=== PATIENT | female | born 1965 | race Caucasian/White ===

== ENCOUNTER → 2019-12-27 13:09 | Outpatient (REF) | payer OTHER, SELFPAY | LOC: ANHLAB 13:09 | PROVIDERS: PCP Family Medicine; Visit Provider Nurse Practitioner Family | DX: L72.9 Follicular cyst of the skin and subcutaneous tissue, unspecified (principal) | CPT/HCPCS: 88304 ==

== ENCOUNTER 2021-06-23 09:57 | Outpatient (CLI) | payer OTHER, SELFPAY ==
--- NOTE | ~2021-06-23 | US_ITS ---
EXAMINATION: US abdomen limited DATE: 06/23/2021 10:34 INDICATION: Other specified abnormal findings of blood chemistry. TECHNIQUE: Multiple grayscale and Doppler ultrasound images of the abdomen were obtained. COMPARISON: Ultrasound 04/16/2015 FINDINGS: The visualized portions of the head, body, and tail of the pancreas are normal. There is di ffuse hepatic steatosis. There is normal flow in main portal vein. The gallbladder is normal in size. No gallstones or gallbladder wall thickening. There was no sonographic Lewis sign. The common duct is normal and measures 3 mm. IMPRESSION: 1. Diffuse hepatic steatosis. Reviewed, dictated and finalized at location A.
== END 2021-06-23 09:58 | disposition home or self-care (01) ==
LOC: ANHIMG 10:00
PROVIDERS: PCP Family Medicine; Visit Provider Physician Assistant
DX: R79.89 Other specified abnormal findings of blood chemistry (principal); K76.0 Fatty (change of) liver, not elsewhere classified
CPT/HCPCS: 76705

== ENCOUNTER 2021-08-13 01:25 | Day surgery (SDC) | payer OTHER, SELFPAY ==
[2021-08-04 13:14] VITALS: BMI 32.8
--- NOTE | 2021-08-12 13:06 | PM.HPGS ---
History of Present Illness History of Present Illness Consent: Risks, benefits, and alternatives have been discussed and questions answered. Patient agrees to proceed with procedure. Chief complaint: hx of colon polyps Z86.010 Narrative: Nery Barker is a 56 year old female Family history of colon cancer. She had a polyp removed about 7 years ago. She is here for colon cancer screening Review of Systems Review of Systems: All systems reviewed & are unremarkable except as noted in HPI and below PMFSH Past Medical History Medical History Anxiety HLD (hyperlipidemia) HTN (hypertension) Type 2 diabetes mellitus Surgical History Surgical History History of hysterectomy Family History Family History Sibling Hypertension Carcinoma of colon Family history of coronary artery disease Mother Family history of coronary artery disease Social History Social History Smoking status: Never smoker Alcohol intake: current Drinks per week: 5 Substance use: never Substance use type: does not use Gender identity (if verbalized by the patient): Female Meds Home Medications and Allergies Home Medications Medication Instructions Recorded Confirmed Type blood sugar diagnostic #100 ea 01/20/21 08/13/21 Rx blood-glucose meter #1 ea 01/20/21 08/13/21 Rx lancets #200 ea 01/20/21 08/13/21 Rx atorvastatin 10 mg tablet See Rx Instructions .ROUTE 01/28/21 08/13/21 Rx .COMPLEX #90 tablet amlodipine 10 mg tablet 10 mg PO DAILY #90 tablet 03/10/21 08/13/21 Rx hydrochlorothiazide 25 mg tablet 25 mg PO DAILY #30 tablet 03/17/21 08/13/21 Rx folic acid 1 mg tablet 1 mg PO DAILY #90 tablet 05/12/21 08/13/21 Rx gabapentin 300 mg capsule 300 mg PO QHS #30 cap 06/23/21 08/13/21 Rx losartan 100 mg tablet 100 mg PO DAILY #30 tablet 06/24/21 08/13/21 Rx semaglutide 0.5 mg SUBCUT WEEKLY #1.5 ml 07/16/21 08/13/21 Rx lorazepam 0.5 mg tablet 0.5 mg PO TID PRN #30 tablet 07/17/21 08/13/21 Rx metoprolol succinate 100 mg See Rx Instructions .ROUTE 07/17/21 08/13/21 Rx tablet,extended release 24 hr .COMPLEX #90 tablet metformin 500 mg PO DAILY 08/04/21 08/13/21 History Allergies Allergy/AdvReac Type Severity Reaction Status Date / Time No Known Allergies Allergy Verified 08/13/21 06:22 Exam Resp: Auscultation: clear to auscultation bilaterally Cardio: Rate: regular rate Rhythm: regular rhythm GI: GI Palp: Yes Soft to palpation and No Tenderness to palpation present (GI) Assessment and Plan Assessment and plan (1) Colon cancer screening: Code(s): Z12.11 - Encounter for screening for malignant neoplasm of colon Status: Acute Assessment and Plan: Colonoscopy with possible biopsy or polypectomy or cautery or injection of substances.
[2021-08-13 06:23] VITALS: BP 127/78; PULSE 105; RESP 18; TEMP 36.7; O2SAT 100
[2021-08-13] MEDS: LACTATED RINGERS 1,000 ML 150 ML IV CONT (06:35)
[2021-08-13 06:42] LABS: Glucose Point of Care 125 mg/dl (65-105)
--- NOTE | 2021-08-13 07:08 | WPDANESEPPF ---
Anes - Initial Pre Proc Eval Procedure: Operation Date: 08/13/21 07:30 Proposed Procedures p Screening Colonoscopy - Abhay Whatley MD Date/Time: 08/13/21 07:08 Surgeon: Abhay Whatley MD Pre Op Diagnosis: hx of colon polyps Z86.010 Patient Data Age: 56 Gender: F Height: 1.7 m Weight: 93.9 kg Last Vital Signs Temp 98.1 F 08/13/21 06:23 Pulse 105 H 08/13/21 06:23 Resp 18 08/13/21 06:23 BP 127/78 08/13/21 06:23 Pulse Ox 100 08/13/21 06:23 Allergies Allergy/AdvReac Type Severity Reaction Status Date / Time No Known Allergies Allergy Verified 08/13/21 06:22 Home Medications Medication Instructions Recorded Confirmed Type blood sugar diagnostic #100 ea 01/20/21 08/13/21 Rx blood-glucose meter #1 ea 01/20/21 08/13/21 Rx lancets #200 ea 01/20/21 08/13/21 Rx atorvastatin 10 mg tablet See Rx Instructions .ROUTE 01/28/21 08/13/21 Rx .COMPLEX #90 tablet amlodipine 10 mg tablet 10 mg PO DAILY #90 tablet 03/10/21 08/13/21 Rx hydrochlorothiazide 25 mg tablet 25 mg PO DAILY #30 tablet 03/17/21 08/13/21 Rx folic acid 1 mg tablet 1 mg PO DAILY #90 tablet 05/12/21 08/13/21 Rx gabapentin 300 mg capsule 300 mg PO QHS #30 cap 06/23/21 08/13/21 Rx losartan 100 mg tablet 100 mg PO DAILY #30 tablet 06/24/21 08/13/21 Rx semaglutide 0.5 mg SUBCUT WEEKLY #1.5 ml 07/16/21 08/13/21 Rx lorazepam 0.5 mg tablet 0.5 mg PO TID PRN #30 tablet 07/17/21 08/13/21 Rx metoprolol succinate 100 mg See Rx Instructions .ROUTE 07/17/21 08/13/21 Rx tablet,extended release 24 hr .COMPLEX #90 tablet metformin 500 mg PO DAILY 08/04/21 08/13/21 History Laboratory Tests 08/13/21 06:38 POC Capillary Glucose 125 mg/dl H mg/dl (65-105) Patient hx anesthesia problems: none Family hx anesthesia problems: none Results Review: All pre-operative results and documents have been reviewed as part of the pre-operative evaluation. [facility] Past Medical History Medical History (Updated 08/13/21 @ 07:09 by Pavan Worrell MD) Anxiety HLD (hyperlipidemia) HTN (hypertension) Type 2 diabetes mellitus Surgical History Surgical History History of hysterectomy Family History Family History Sibling Hypertension Carcinoma of colon Family history of coronary artery disease Mother Family history of coronary artery disease Social History Social History Smoking status: Never smoker Alcohol intake: current Drinks per week: 5 Substance use: never Substance use type: does not use Gender identity (if verbalized by the patient): Female Anes - Eval Final PreProcedure Day of Procedure 08/13/21 07:08 Patient weight: obese Heart: regular rate and rhythm Lungs: clear to auscultation Airway: Mallampati scale class II Neurological: alert and oriented Last oral intake: >/= 8 hours ASA classification: III Emergent: no Anesthetic plan: proceed Anesthesia type and monitoring: general GIVS and standard monitoring Results Review: All pre-operative results and documents have been reviewed as part of the pre-operative evaluation. Informed Consent: The patient's anesthetic plan and its attendant risks and benefits were discussed with the patient/family/POA. Questions were solicited and answers provided to the satisfaction of the patient/family/POA.
[2021-08-13 07:58] VITALS: BP 108/72; PULSE 105; RESP 17; O2SAT 98
[2021-08-13 08:08] VITALS: BP 126/86; PULSE 99; RESP 24; O2SAT 99
[2021-08-13 08:18] VITALS: BP 133/82; PULSE 81; RESP 15; O2SAT 100
== END 2021-08-13 08:24 | disposition home or self-care (01) ==
PROVIDERS: PCP Family Medicine; Visit Provider Internal Medicine Gastroenterology
PROC: 0DJD8ZZ Inspection of Lower Intestinal Tract, Via Natural or Artificial Opening Endoscopic (ICD-10-PCS; CPT 45378; principal; 2021-08-13 07:30)
DX: Z12.11 Encounter for screening for malignant neoplasm of colon (principal); K57.30 Diverticulosis of large intestine without perforation or abscess without bleeding; D12.2 Benign neoplasm of ascending colon; Z80.0 Family history of malignant neoplasm of digestive organs; I10 Essential (primary) hypertension; E78.5 Hyperlipidemia, unspecified; E11.9 Type 2 diabetes mellitus without complications; F41.9 Anxiety disorder, unspecified; Z79.84 Long term (current) use of oral hypoglycemic drugs; E66.9 Obesity, unspecified; Z68.32 Body mass index [BMI] 32.0-32.9, adult
CPT/HCPCS: 45385; 45381; 82948; 88305; J2704; J7120

== ENCOUNTER → 2021-09-25 15:36 | Outpatient (REF) | payer OTHER, SELFPAY | LOC: ANHLAB 15:36 | PROVIDERS: PCP Family Medicine; Visit Provider Nurse Practitioner | DX: L72.0 Epidermal cyst (principal) | CPT/HCPCS: 88304 ==

== ENCOUNTER 2022-09-09 00:47 | Day surgery (SDC) | payer OTHER, SELFPAY ==
[2022-08-21 13:37] VITALS: BMI 32.8
--- NOTE | 2022-09-08 12:45 | PM.HPGS ---
History of Present Illness History of Present Illness Consent: Risks, benefits, and alternatives have been discussed and questions answered. Patient agrees to proceed with procedure. Chief complaint: hx colon polyps, neoplasm screening Narrative: Nery Barker is a 57 year old female returns for colonoscopy because 1 year ago she had piecemeal removal of of large broad-based villous adenoma from the ascending colon. Review of Systems Review of Systems: All systems reviewed & are unremarkable except as noted in HPI and below PMFSH Past Medical History Medical History Anxiety HLD (hyperlipidemia) HTN (hypertension) Type 2 diabetes mellitus Surgical History Surgical History History of hysterectomy Family History Family History Sibling Hypertension Carcinoma of colon Family history of coronary artery disease Mother Family history of coronary artery disease Social History Social History Smoking status: Never smoker Alcohol intake: current Drinks per week: 6 Substance use: former Substance use type: marijuana Last use: 30 YRS Living arrangements: alone Gender identity (if verbalized by the patient): Female Sexual Orientation (if Verbalized by the Patient): Straight or Heterosexual Spiritual care concerns: No Meds Home Medications and Allergies Home Medications Medication Instructions Recorded Confirmed Type blood sugar diagnostic (Blood #100 ea 01/20/21 05/28/22 Rx Glucose Test strips) blood-glucose meter #1 ea 01/20/21 05/28/22 Rx lancets #200 ea 01/20/21 05/28/22 Rx hydrochlorothiazide 25 mg tablet 25 mg PO DAILY #90 tabs 12/24/21 09/09/22 Rx gabapentin 300 mg capsule 300 mg PO BID #180 caps 06/09/22 09/09/22 Rx atorvastatin 10 mg tablet See Rx Instructions .Route 07/13/22 09/09/22 Rx .COMPLEX #90 tabs losartan 100 mg tablet 100 mg PO DAILY #90 tabs 07/13/22 09/09/22 Rx semaglutide 0.25 mg or 0.5 mg (2 0.5 mg (0.4 mL) subcut WEEKLY 4 07/27/22 09/09/22 Rx mg/1.5 mL) subcutaneous pen doses #1.5 mL injector (Ozempic) lorazepam 0.5 mg tablet (Ativan) 0.5 mg PO TID PRN anxiety #30 tabs 08/20/22 09/09/22 Rx folic acid 1 mg tablet 1 mg PO DAILY #90 tabs 09/04/22 09/09/22 Rx Allergies Allergy/AdvReac Type Severity Reaction Status Date / Time No Known Allergies Allergy Verified 09/09/22 06:40 Exam Const: General: alert Orientation/consciousness: patient oriented x3 Resp: Auscultation: clear to auscultation bilaterally Cardio: Rhythm: regular rhythm GI: GI Palp: Yes Soft to palpation and No Tenderness to palpation present (GI) Neuro: General: patient oriented x3 Assessment and Plan Assessment and plan (1) Colon cancer screening: Code(s): Z12.11 - Encounter for screening for malignant neoplasm of colon Status: Acute Assessment and Plan: Colonoscopy with possible biopsy or polypectomy or cautery or injection of substances.
[2022-09-09 06:40] LABS: Glucose Point of Care 132 mg/dl (65-105)
[2022-09-09 06:41] VITALS: BP 136/94; PULSE 84; RESP 18; TEMP 36.2; O2SAT 99
[2022-09-09] MEDS: LACTATED RINGERS 1,000 ML 150 ML IV CONT (06:45)
--- NOTE | 2022-09-09 07:28 | WPDANESEPPF ---
Anes - Initial Pre Proc Eval Procedure: Operation Date: 09/09/22 08:00 Proposed Procedures p Screening Colonoscopy - Abhay Whatley MD Date/Time: 09/09/22 07:28 Surgeon: Abhay Whatley MD Pre Op Diagnosis: hx colon polyps, neoplasm screening Patient Data Age: 57 Gender: F Height: 1.7 m Weight: 97.2 kg Last Vital Signs Temp 97.2 F L 09/09/22 06:41 Pulse 84 09/09/22 06:41 Resp 18 09/09/22 06:41 BP 136/94 H 09/09/22 06:41 Pulse Ox 99 09/09/22 06:41 O2 Del Method Room Air 09/09/22 06:41 Allergies Allergy/AdvReac Type Severity Reaction Status Date / Time No Known Allergies Allergy Verified 09/09/22 06:40 Home Medications Medication Instructions Recorded Confirmed Type blood sugar diagnostic (Blood #100 ea 01/20/21 05/28/22 Rx Glucose Test strips) blood-glucose meter #1 ea 01/20/21 05/28/22 Rx lancets #200 ea 01/20/21 05/28/22 Rx hydrochlorothiazide 25 mg tablet 25 mg PO DAILY #90 tabs 12/24/21 09/09/22 Rx gabapentin 300 mg capsule 300 mg PO BID #180 caps 06/09/22 09/09/22 Rx atorvastatin 10 mg tablet See Rx Instructions .Route 07/13/22 09/09/22 Rx .COMPLEX #90 tabs losartan 100 mg tablet 100 mg PO DAILY #90 tabs 07/13/22 09/09/22 Rx semaglutide 0.25 mg or 0.5 mg (2 0.5 mg (0.4 mL) subcut WEEKLY 4 07/27/22 09/09/22 Rx mg/1.5 mL) subcutaneous pen doses #1.5 mL injector (Ozempic) lorazepam 0.5 mg tablet (Ativan) 0.5 mg PO TID PRN anxiety #30 tabs 08/20/22 09/09/22 Rx folic acid 1 mg tablet 1 mg PO DAILY #90 tabs 09/04/22 09/09/22 Rx Laboratory Tests 09/09/22 06:38 POC Capillary Glucose 132 mg/dl H mg/dl (65-105) Patient hx anesthesia problems: none Family hx anesthesia problems: none Results Review: All pre-operative results and documents have been reviewed as part of the pre-operative evaluation. [facility] Past Medical History Medical History Anxiety HLD (hyperlipidemia) HTN (hypertension) Type 2 diabetes mellitus Surgical History Surgical History History of hysterectomy Family History Family History Sibling Hypertension Carcinoma of colon Family history of coronary artery disease Mother Family history of coronary artery disease Social History Social History Smoking status: Never smoker Alcohol intake: current Drinks per week: 6 Substance use: former Substance use type: marijuana Last use: 30 YRS Living arrangements: alone Gender identity (if verbalized by the patient): Female Sexual Orientation (if Verbalized by the Patient): Straight or Heterosexual Spiritual care concerns: No Anes - Eval Final PreProcedure Day of Procedure 09/09/22 07:28 Patient weight: obese Heart: regular rate and rhythm Lungs: clear to auscultation Airway: Mallampati scale class II Neurological: alert and oriented Last oral intake: >/= 8 hours ASA classification: III Emergent: no Anesthetic plan: proceed Anesthesia type and monitoring: general GIVS and standard monitoring Results Review: All pre-operative results and documents have been reviewed as part of the pre-operative evaluation. Informed Consent: The patient's anesthetic plan and its attendant risks and benefits were discussed with the patient/family/POA. Questions were solicited and answers provided to the satisfaction of the patient/family/POA.
[2022-09-09] MEDS: SIMETHICONE ORAL SUSPENSION 20 MG/0.3 ML 30 ML BOTTLE 0.6 ML IRRIGATION (08:04)
[2022-09-09 08:13] VITALS: BP 99/65; PULSE 88; RESP 20; O2SAT 99
[2022-09-09 08:23] VITALS: BP 116/75; PULSE 84; RESP 20; O2SAT 100
[2022-09-09 08:33] VITALS: BP 119/80; PULSE 72; RESP 15; O2SAT 99
== END 2022-09-09 08:45 | disposition home or self-care (01) ==
PROVIDERS: PCP Family Medicine; Visit Provider Internal Medicine Gastroenterology
PROC: 0DJD8ZZ Inspection of Lower Intestinal Tract, Via Natural or Artificial Opening Endoscopic (ICD-10-PCS; CPT 45378; principal; 2022-09-09 08:00)
DX: Z09 Encounter for follow-up examination after completed treatment for conditions other than malignant neoplasm (principal); K57.30 Diverticulosis of large intestine without perforation or abscess without bleeding; K63.5 Polyp of colon; I10 Essential (primary) hypertension; E78.5 Hyperlipidemia, unspecified; E11.9 Type 2 diabetes mellitus without complications; F41.9 Anxiety disorder, unspecified; Z79.899 Other long term (current) drug therapy; E66.9 Obesity, unspecified; Z68.33 Body mass index [BMI] 33.0-33.9, adult
CPT/HCPCS: 45380; 82948; 88305; J2704; J7120

== ENCOUNTER 2023-04-15 08:53 | Outpatient (CLI) | payer OTHER, SELFPAY ==
--- NOTE | 2023-04-15 11:00 | NEURO_ITS ---
Impression: # Known diabetic complains of increasing numbness of all extremities. History of significant arthritis. # Length dependent neuropathy involving lower extremities more than uppers and motor nerves more than sensory nerves . None to minimal responses obtained from the right lower extremity. # Mild right ulnar neuropathy across the elbow superimposed on the underlying neuropathic process. # Needle/EMG exam revealed neurogenic changes but no fibrillations In the lower extremities muscles. Nerve Conduction Studies Anti Sensory Summary Table Stim Site NR Peak (ms) P-T Amp (?V) Site1 Site2 Delta-P (ms) Dist (cm) Olaf (m/s) Left Median Anti Sensory (2-3nd Digit) Wrist 2.9 15.2 Wrist 2-3nd Digit 2.9 14.0 48 Wrist 2.9 13.7 Wrist 2-3nd Digit 2.9 14.0 48 Right Median Anti Sensory (2-3nd Digit) Wrist 3.3 11.2 Wrist 2-3nd Digit 3.3 14.0 42 Wrist 3.1 8.5 Wrist 2-3nd Digit 3.3 14.0 42 Left Radial Anti Sensory (Base 1st Digit) Wrist 2.0 13.2 Wrist Base 1st Digit 2.0 0.0 Right Radial Anti Sensory (Base 1st Digit) Wrist 2.3 34.6 Wrist Base 1st Digit 2.3 0.0 Left Sup Fibular Anti Sensory (Ant Lat Mall) NO RESPONSE 14 cm NR 14 cm Ant Lat Mall 16.0 Right Sup Fibular Anti Sensory (Ant Lat Mall) NO RESPONSE 14 cm NR 14 cm Ant Lat Mall 16.0 Left Sural Anti Sensory (Lat Mall) NO RESPONSE Calf NR Calf Lat Mall 16.0 Right Sural Anti Sensory (Lat Mall) DISPERSED RESPONSE Calf NR Calf Lat Mall 16.0 Left Ulnar Anti Sensory (5th Digit) Wrist 2.5 23.8 Wrist 5th Digit 2.5 14.0 56 Right Ulnar Anti Sensory (5th Digit) Wrist 2.6 31.5 Wrist 5th Digit 2.6 14.0 54 Motor Summary Table Stim Site NR Onset (ms) O-P Amp (mV) Site1 Site2 Delta-0 (ms) Dist (cm) Olaf (m/s) Left Median Motor (Abd Poll Brev) Wrist 3.1 4.8 Elbow Wrist 5.7 28.0 49 Elbow 8.8 3.4 Right Median Motor (Abd Poll Brev) Wrist 3.6 3.7 Elbow Wrist 5.2 29.0 56 Elbow 8.8 3.2 Left Peroneal Motor (Vastus Med) NO RESPONSE Ankle NR Popit NR Right Peroneal Motor (Vastus Med) Ankle 4.8 0.6 Popit Ankle 10.9 38.0 35 Popit 15.7 0.5 Left Tibial Motor (Abd Hcong Brev) NO RESPONSE Ankle NR Knee NR Right Tibial Motor (Abd Chong Brev) NO RESPONSE Ankle NR Knee NR Left Ulnar Motor (Abd Dig Minimi) Wrist 2.7 4.9 A Elbow Wrist 5.0 29.0 58 A Elbow 7.7 3.6 Right Ulnar Motor (Abd Dig Minimi) Wrist 2.8 3.6 A Elbow Wrist 6.1 29.0 48 A Elbow 8.9 2.6 B Elbow Wrist 3.8 20.0 53 B Elbow 6.6 2.9 F Wave Studies NR F-Lat (ms) L-R F-Lat (ms) Left Median (Mrkrs) (Abd Poll Brev) 29.60 0.45 Right Median (Mrkrs) (Abd Poll Brev) 29.15 0.45 Left Peroneal (Mrkrs) (EDB) DISPERSED RESPONSE NR Right Peroneal (Mrkrs) (EDB) 59.42 Left Tibial (Mrkrs) (Abd Hallucis) DISPERSED RESPONSE NR Right Tibial (Mrkrs) (Abd Hallucis) NO RESPONSE NR Left Ulnar (Mrkrs) (Abd Dig Min) 29.36 0.31 Right Ulnar (Mrkrs) (Abd Dig Min) 29.05 0.31 EMG Side Muscle Nerve Root Ins Act Fibs Amp Dur Recrt Comment Right 1stDorInt Ulnar C8-T1 Nml Nml Decr >12ms Reduced Right Ext Indicis Radial (Post Int) C7-8 Nml
== END 2023-04-15 08:54 | disposition home or self-care (01) ==
PROVIDERS: PCP Family Medicine; Visit Provider Physician Assistant
DX: R20.2 Paresthesia of skin (principal); G56.21 Lesion of ulnar nerve, right upper limb
CPT/HCPCS: 95886; 95911; 95913

== ENCOUNTER 2023-06-19 10:17 | Emergency (ER) | payer OTHER, SELFPAY ==
[2023-06-19 10:29] VITALS: BP 136/88; PULSE 78; RESP 16; TEMP 36.6; O2SAT 98
--- NOTE | 2023-06-19 10:42 | ED.DENTAL ---
HPI - Dental/Oral General Chief complaint: Dental/Oral Stated complaint: Toothache Time Seen by Provider: 06/19/23 10:39 Source: patient Mode of arrival: ambulatory History of Present Illness HPI Narrative: 58 y/o female presented for c/o right upper dental pain worsening for 2 days. Pain radiates to the top of the mouth. Endorses history of crowns and cavities but denies any recent complications or trauma. Denies sinus pain, facial swelling, n/v/d/f/c. Taking Tylenol for pain. MD Complaint: tooth pain Related Data Allergies Allergy/AdvReac Type Severity Reaction Status Date / Time No Known Allergies Allergy Verified 06/19/23 10:34 Review of Systems Review of Systems: CONSTITUTIONAL: Denies body aches, fever, chills ENT: Denies rhinorrhea, congestion, sore throat, or otalgia. Reports dental pain CARDIOVASCULAR: Denies chest pain, palpitations RESPIRATORY: Denies cough or dyspnea. SKIN: Denies rash, itching, or wounds. MUSCULOSKELETAL: Denies myalgia. NEUROLOGIC: Denies headache, numbness, tingling, or weakness. [facility] Past Medical History Medical History Anxiety HLD (hyperlipidemia) HTN (hypertension) Type 2 diabetes mellitus Surgical History Surgical History History of hysterectomy Family History Family History Sibling Hypertension Carcinoma of colon Family history of coronary artery disease Mother Family history of coronary artery disease Social History Social History Social History: Smoking status: Never smoker Second hand tobacco smoke exposure: No Alcohol intake: current Drinks per week: 6 Substance use: former Substance use type: marijuana Last use: 30 YRS Living arrangements: with family Occupation/Education: occupation Gender identity (if verbalized by the patient): Female Sexual Orientation (if Verbalized by the Patient): Straight or Heterosexual Spiritual care concerns: No Comments At time of signature, I have reviewed and agree with nursing past medical, surgical, social and family history unless otherwise noted. Please see nursing chart for further information. There is no relevant family history pertinent to the presenting complaint Exam Narrative: GENERAL: well appearing, no acute distress. HEAD: Normocephalic, atraumatic. EYES: EOMI. No redness or drainage. Conjunctivae normal. ENT: Dental pain location of #6, tooth with crown in place, dark discoloration is visible, tenderness to anterior gumline, with mild gum swelling. Mucous membranes pink and moist. TMs normal bilaterally. Throat normal. Uvula midline. NECK: Normal AROM. No lymphadenopathy. CHEST: No respiratory distress. Clear to auscultation. HEART: Regular rate and rhythm. No murmur appreciated. SKIN: Warm, dry, no rash. Normal skin turgor. NEURO: Alert and oriented x3. Gait steady. Course Course Emergency Course: Patient is aware of diagnosis, understands and agrees to treatment plan. Anticipatory guidance given. Patient agrees to follow-up as directed and is aware of reasons to seek care at the emergency department. Portions of this record may have been created with voice recognition software Level of Care: Express Care Visit Vital Signs Vital signs: Vital Signs Temperature 97.9 F 06/19/23 10:29 Pulse Rate 78 06/19/23 10:29 Respiratory Rate 16 06/19/23 10:29 Blood Pressure 136/88 06/19/23 10:29 Pulse Oximetry 98 06/19/23 10:29 Temperature 97.9 F 06/19/23 10:29 Pulse Rate 78 06/19/23 10:29 Respiratory Rate 16 06/19/23 10:29 Blood Pressure 136/88 06/19/23 10:29 Pulse Oximetry 98 06/19/23 10:29 MDM - Dental/Oral MDM Narrative Medical decision making narrative: Patients pain and physica
== END 2023-06-19 10:46 | disposition home or self-care (01) ==
PROVIDERS: Emergency Provider Nurse Practitioner Family; PCP Family Medicine
DX: K08.89 Other specified disorders of teeth and supporting structures (principal); E78.5 Hyperlipidemia, unspecified; I10 Essential (primary) hypertension; E11.9 Type 2 diabetes mellitus without complications
CPT/HCPCS: 99213; G0463

== ENCOUNTER 2023-09-19 10:29 | Emergency (ER) | payer OTHER, SELFPAY ==
[2023-09-19 10:42] VITALS: BP 134/89; PULSE 90; RESP 16; TEMP 36.8; O2SAT 98
--- NOTE | 2023-09-19 11:08 | ED.DENTAL ---
HPI - Dental/Oral General Chief complaint: Dental/Oral Stated complaint: TOOTHACHE Source: patient and RN notes reviewed History of Present Illness HPI Narrative: 58 yo F presents to urgent care with complaints of left lower dental pain since last night. Pt denies any fevers, chills, chest pain, SOB, trouble swallowing or breathing, or vomiting. Pt states she has a dentist. Related Data Allergies Allergy/AdvReac Type Severity Reaction Status Date / Time No Known Allergies Allergy Verified 09/19/23 10:34 Review of Systems Review of Systems: CONSTITUTIONAL: Denies fever, chills, or sweats. EYES: Denies visual changes, redness, or discharge. ENT: Denies otalgia and sore throat. Left lower dental pain CARDIOVASCULAR: Denies chest pain, palpitations, or edema. RESPIRATORY: Denies cough or dyspnea. GASTROINTESTINAL: Denies abdominal pain, nausea, vomiting, or diarrhea. GENITOURINARY: Denies dysuria or hematuria. SKIN: Denies rash or itching. MUSCULOSKELETAL: Denies back pain, joint pain, or myalgia. NEUROLOGIC: Denies headache, numbness, or weakness. Pertinent positives per HPI. [facility] Past Medical History Medical History Anxiety HLD (hyperlipidemia) HTN (hypertension) Type 2 diabetes mellitus Surgical History Surgical History History of hysterectomy Family History Family History Sibling Hypertension Carcinoma of colon Family history of coronary artery disease Mother Family history of coronary artery disease Social History Social History (Updated 07/05/23 @ 14:59 by Bettye Durand) Social History: Smoking status: Never smoker Second hand tobacco smoke exposure: No Alcohol intake: current Drinks per week: 6 Substance use: former Substance use type: marijuana Last use: 30 YRS Lack of Transportation: No Lack of Food: Never True Current Housing: I Have Housing Concerned About Future Housing: No Difficulty Paying Gas/Electric Bills: No Difficulty Paying for Meds: No Currently Unemployed: No Education: Decline to Answer Difficulty w/ Childcare or Family Care: No Living arrangements: with family Occupation/Education: occupation Gender identity (if verbalized by the patient): Female Sexual Orientation (if Verbalized by the Patient): Straight or Heterosexual Spiritual care concerns: No Comments At the time of my signature, I reviewed and agree with the nursing past medical, surgical, social, and family history. There is no relevant family history pertinent to the patient complaint. Exam Narrative: GENERAL: This is a well-nourished, well-developed patient, in no apparent distress. HEAD: normocephalic, atraumatic. EYES: Sclera clear/white. Vision is grossly intact. EARS: External ears normal, auditory canals clear and without drainage. Hearing grossly intact. NOSE: External nose normal with no obvious nasal discharge, nares without redness, no rhinorrhea. THROAT: Mucous membranes moist, posterior pharynx clear. Tooth #18 noted to have some decay noted witih surrounding swollen gums. no exudate. NECK: Neck supple, non-tender without lymphadenopathy, masses or thyromegaly. CARDIOVASCULAR: Regular rate RESPIRATORY: No respiratory distress SKIN: warm, intact with no suspicious lesions or rash, good texture and turgor. NEURO: awake, alert, and oriented to person, place and time. There were no obvious focal neurologic abnormalities. EXTREMITIES: No clubbing, cyanosis, or edema. No joint tenderness, effusion, or edema noted. BACK: Nontender without deformity or crepitus. No flank tenderness. Course Course Level of Care: Express Care Visit Vital Signs Vital signs: Vital Signs Temperature 98.3 F 09/19/23 10:42 Pulse Rate 90 09/19/23 10:42 Respiratory Rate 16 09/19/23 10:42 Blood
== END 2023-09-19 10:58 | disposition home or self-care (01) ==
PROVIDERS: Emergency Provider Nurse Practitioner Family; PCP Family Medicine
DX: K08.89 Other specified disorders of teeth and supporting structures (principal); I10 Essential (primary) hypertension; E78.5 Hyperlipidemia, unspecified; E11.9 Type 2 diabetes mellitus without complications; F41.9 Anxiety disorder, unspecified
CPT/HCPCS: 99213; G0463

== ENCOUNTER 2023-11-07 11:04 | Emergency (ER) | payer OTHER, SELFPAY ==
[2023-11-07 11:54] VITALS: BP 128/84; PULSE 91; RESP 16; TEMP 36.7; O2SAT 99
== END 2023-11-07 12:39 | disposition left against medical advice (07) ==
LOC: EXPGOSH 11:06
PROVIDERS: Emergency Provider Nurse Practitioner; PCP Family Medicine
DX: K04.7 Periapical abscess without sinus (principal)
CPT/HCPCS: 99199

== ENCOUNTER 2025-10-01 06:41 | Day surgery (SDC) | payer OTHER, SELFPAY ==
[2025-09-20 10:14] VITALS: BMI 30.1
[2025-10-01 07:09] VITALS: BMI 31.4
--- NOTE | 2025-10-01 08:47 | P.PNAN_ITS ---
Anes - Initial Pre Proc Eval Procedure: Operation Date: 10/01/25 08:30 Proposed Procedures p Screening Colonoscopy - Isac Weiner MD Date/Time: 10/01/25 08:47 Surgeon: Isac Weiner MD Pre Op Diagnosis: Personal history of colon polyps, unspecified Patient Data Age: 60 Gender: F Height: 1.7 m Weight: 91.1 kg Allergies Allergy/AdvReac Type Severity Reaction Status Date / Time No Known Allergies Allergy Verified 10/01/25 07:06 Home Medications ?Medication ?Instructions ?Recorded ?Confirmed ?Type blood-glucose meter #1 ea 01/20/21 03/27/25 Rx lancets #200 ea 01/20/21 03/27/25 Rx blood sugar diagnostic (Blood #100 ea 08/10/24 5 Rx Glucose Test strips) gabapentin 300 mg capsule 300 mg PO .COMPLEX #450 caps 10/05/24 10/01/25 Rx hydrochlorothiazide 25 mg tablet 25 mg PO DAILY #90 ta bs 01/22/25 10/01/25 Rx losartan 100 mg tablet 100 mg PO DAILY #90 tabs 01/0910/01/25 Rx semaglutide 2 mg/dose (8 mg/3 mL) 2 mg (0.75 mL) subcu t WEEKLY #3 mL 07/20/25 10/01/25 Rx subcutaneous pen injector metoprolol succinate 25 mg 25 mg PO DAILY #90 tabs 10/01/25 Rx tablet,extended release 24 hr lorazepam 0.5 mg tablet 0.5 mg PO TID PRN anxiety #3 0 tabs 09/03/25 10/01/25 Rx Laboratory Tests 10/01/25 07:28 POC Capillary Glucose 134 H mg/dl (65-105) Patient hx anesthesia problems: none Family hx anesthesia problems: none Results Review: All pre-operative results and documents have been reviewed as part of the pre- operative evaluation. [facility] Past Medical History Medical History Type 2 diabetes mellitus Anxiety HLD (hyperlipidemia) HTN (hypertension) Surgical History Surgical History History of hysterectomy Family History Family History Sibling Hypertension Carcinoma of colon Family history of coronary artery disease Mother Family history of coronary artery disease Social History Social History Social History: Smoking status: Never smoker Second hand tobacco smoke exposure: No Alcohol intake: current Drinks per week: 10 Substance use: former Substance use type: does not use Last use: 30 YRS Lack of Transportation: No Lack of Food: Never True Current Housing: I Have Housing Concerned About Future Housing: No Difficulty Paying Gas/Electric Bills: No Difficulty Paying for Meds: No Currently Unemployed: No Education: Decline to Answer Difficulty w/ Childcare or Family Care: No Living arrangements: with family Occupation/Education: occupation Gender identity (if verbalized by the patient): Female Sexual Orientation (if Verbalized by the Patient): Straight or Heterosexual Spiritual care concerns: No Anes - Eval Final PreProcedure Day of Procedure 10/01/25 08:47 Heart: regular rate and rhythm Lungs: clear to auscultation Airway: Mallampati scale class II Neurological: alert and oriented Last oral intake: >/= 8 hours ASA classification: III Emergent: no Anesthetic plan: proceed Anesthesia type and monitoring: monitored anesthesia care Results Review: All pre-operative results and documents have been reviewed as part of the pre-operative evaluation. Informed Consent: The patient's anesthetic plan and its attendant risks and benefits were discussed with the patient/family/POA. Questions were solicited and answers provided to the satisfaction of the patient/family/POA.
--- NOTE | 2025-10-01 09:00 | PM.IMHP ---
H&P: HPI History of Present Illness Date/Time: 10/01/25 09:00 Chief Complaint: Family history of colon cancer Narrative: This patient has family history of colorectal cancer. . Brother had colon cancer at age 52. Review of Systems Review of Systems: All systems reviewed & are unremarkable except as noted in HPI and below PMFSH Past Medical History Medical History Type 2 diabetes mellitus Anxiety HLD (hyperlipidemia) HTN (hypertension) Surgical History Surgical History History of hysterectomy Family History Family History Sibling Hypertension Carcinoma of colon Family history of coronary artery disease Mother Family history of coronary artery disease Social History Social History Social History: Smoking status: Never smoker Second hand tobacco smoke exposure: No Alcohol intake: current Drinks per week: 10 Substance use: former Substance use type: does not use Last use: 30 YRS Lack of Transportation: No Lack of Food: Never True Current Housing: I Have Housing Concerned About Future Housing: No Difficulty Paying Gas/Electric Bills: No Difficulty Paying for Meds: No Currently Unemployed: No Education: Decline to Answer Difficulty w/ Childcare or Family Care: No Living arrangements: with family Occupation/Education: occupation Gender identity (if verbalized by the patient): Female Sexual Orientation (if Verbalized by the Patient): Straight or Heterosexual Spiritual care concerns: No Meds Home Medications and Allergies Home Medications ?Medication ?Instructions ?Recorded ?Confirmed ?Type blood-glucose meter #1 ea 01/20/21 03/27/25 Rx lancets #200 ea 01/20/21 03/27/25 Rx blood sugar diagnostic (Blood #100 ea 08/10/24 03/27/25 Rx Glucose Test strips) gabapentin 300 mg capsule 300 mg PO .COMPLEX #450 caps 10/05/24 10/01/25 Rx hydrochlorothiazide 25 mg tablet 25 mg PO DAILY #90 tabs 01/22/25 10/01/25 Rx losartan 100 mg tablet 100 mg PO DAILY #90 tabs 03/16/25 10/01/25 Rx semaglutide 2 mg/dose (8 mg/3 mL) 2 mg (0.75 mL) subcut WEEKLY #3 mL 07/20/25 10/01/25 Rx subcutaneous pen injector metoprolol succinate 25 mg 25 mg PO DAILY #90 tabs 08/27/25 10/01/25 Rx tablet,extended release 24 hr lorazepam 0.5 mg tablet 0.5 mg PO TID PRN anxiety #30 tabs 09/03/25 10/01/25 Rx Allergies Allergy/AdvReac Type Severity Reaction Status Date / Time No Known Allergies Allergy Verified 10/01/25 07:06 Exam Const: General: cooperative and healthy appearing Resp: Effort & Inspection: normal respiratory effort and able to speak in complete sentences Auscultation: clear to auscultation bilaterally Cardio: Rate: regular rate Rhythm: regular rhythm GI: Inspection: normal to inspection GI Palp: No No hepatosplenomegaly present Auscultation: normal bowel sounds Rectal Exam: deferred Skin: General skin exam: normal color Psych: Appearance: grossly normal Mental Status: mental status grossly normal Assessment and Plan Assessment and plan (1) Colon cancer screening: Code(s): Z12.11 - Encounter for screening for malignant neoplasm of colon Status: Acute (2) Family history of colon cancer: Code(s): Z80.0 - Family history of malignant neoplasm of digestive organs Status: Acute Assessment and Plan: The patient is deemed a good candidate for the procedure. Consent signed. Will proceed.
[2025-10-01] MEDS: LACTATED RINGERS 1,000 ML 150 ML IV CONT (09:32)
[2025-10-01 09:33] VITALS: BP 123/77; PULSE 85; RESP 20; O2SAT 99
[2025-10-01 09:43] VITALS: BP 117/82; PULSE 84; RESP 18; O2SAT 99
[2025-10-01 09:53] VITALS: BP 121/85; PULSE 77; RESP 18; O2SAT 100
--- NOTE | 2025-10-01 12:42 | WPDANESPN ---
Anes - Prog Note Post-Op Date/Time: 10/01/25 12:42 Cardiovascular status: normal Respiratory status: normal Airway patency: baseline Mental status: baseline Post-Op hydration status: normal Vital Signs: Last Vital Signs Pulse 77 10/01/25 09:53 Resp 18 10/01/25 09:53 BP 121/85 10/01/25 09:53 Pulse Ox 100 10/01/25 09:53 O2 Del Method Room Air 10/01/25 09:53 Pain Score (VAS): 0 10/01/25 07:28 POC Capillary Glucose 134 H Post-procedural complaints: none Patient Feedback: Patient satisfied with anesthetic care.
== END 2025-10-01 10:12 | disposition home or self-care (01) ==
PROVIDERS: PCP Physician Assistant; Referring Provider Physician Assistant; Visit Provider Internal Medicine Gastroenterology
PROC: 0DJD8ZZ Inspection of Lower Intestinal Tract, Via Natural or Artificial Opening Endoscopic (ICD-10-PCS; CPT 45378; principal; 2025-10-01 08:30)
DX: Z12.11 Encounter for screening for malignant neoplasm of colon (principal); D12.0 Benign neoplasm of cecum; D12.2 Benign neoplasm of ascending colon; K63.5 Polyp of colon; K57.30 Diverticulosis of large intestine without perforation or abscess without bleeding; K64.8 Other hemorrhoids; Z80.0 Family history of malignant neoplasm of digestive organs
CPT/HCPCS: 45385

== ENCOUNTER 2025-10-01 14:15 | Outpatient (NON) | payer OTHER, SELFPAY ==
--- NOTE | 2025-10-01 | S_PTH ---
PATIENT: Nery Barker LOC: [facility] U#:[id number] AGE/SX: 60/F ROOM: RE10/01/[address]: Isac Weiner MD : 1965 BED: DIS: 10/01/2025 SPEC #: [id number] RECD: 10/03/25 07:25 STATUS: STEVE REQ #: [id number] ERIN: 10/01/25 00:[address]: Isac Weiner DEPT: [facility] Surgical RECD BY: Nisreen Mcdaniels ENTERED: 10/03/25 07:27 SP TYPE: Surgical OTHR DR: Serjio Aguirre MD Tissues: A - Colon Polypectomy B - Colon Polypectomy C - Colon Polypectomy Procedures: Hematoxylin and Eosin Stain Gross and Microscopic Level 4
== END 2025-10-01 14:16 | disposition home or self-care (01) ==
LOC: ANHLAB 10-02 14:16
PROVIDERS: PCP Family Medicine; Visit Provider Internal Medicine Gastroenterology
DX: Z12.11 Encounter for screening for malignant neoplasm of colon (principal); D12.0 Benign neoplasm of cecum; D12.2 Benign neoplasm of ascending colon; K63.5 Polyp of colon; Z80.0 Family history of malignant neoplasm of digestive organs
CPT/HCPCS: 88305